=== PATIENT | female | born 1960 | race Caucasian/White ===

== ENCOUNTER → 2020-06-18 | Outpatient (CLI) | payer OTHER ==
[~2020-06-18] VITALS: Ht 160 cm; Wt 77.6 kg
[~2020-06-18] MED LIST: ASA81BEC PO; BUPROPION HCL100 MG PO; CENTRUM SILVER1 EAC5 PO; CITALOPRAM HBR40 MG PO; CLARITIN10 M2 PO; FUROSEMIDE 20 M20 MG PO; GABAPENTIN600 M1 PO; LEVO-T75 MCG PO; MELATONIN10 M3 PO; NORCO 10-325 T1 EACH PO; TRAMADOL 50 MG50 MG PO; VITAMIN B12-FO1 EAC1 PO; ZANAFLEX4 M2 PO
--- NOTE | ~2020-06-18 | HPC ---
[facility] [place] [address] PAIN MANAGEMENT CONSULTATION Name: DANILO ROBERTS Room #: REG [facility]#: [id number] Admission: 06/18/20 Attend Phys: Sam Ortega DO Discharge: Date of : 58 Report #: [id number] THIS REPORT FOR: cc: Tomeka Morin MD, Pamela MD Johnson, James E. DO ~ CC: Sam TOBARP DATE OF SERVICE: 06/18/2020 REFERRING NURSE PRACTITIONER: Olivia Brooks. CHIEF COMPLAINT: Low back pain, bilateral lower extremity pain and paresthesias. HISTORY OF PRESENT ILLNESS: As you know, the patient is a 59-year-old female who has had a longstanding history of low back pain, bilateral lower extremity pain that was present prior to her 3-level fusion of the lumbar spine. Apparently, she did very poorly with her fusion with development of life threatening medical conditions that extended her hospitalization. She was even on dialysis for a period of time. She recovered over a period of time from the postoperative meningitis, encephalitis and renal failure, but has been on narcotic medications since that point. She has sought evaluation through [facility] seeing nurse practitioner, Olivia Brooks who advised the patient that surgical options would be quite extensive and would require prolonged hospitalization. She was originally talked to about an intrathecal pump, but the subject of spinal cord stimulator did rise and the patient was then subsequently referred to our clinic to discuss this option for treatment as she has had significant history with previous fusions and the complication rate with the surgery that is proposed is very high. They determine a more conservative approach would be most recommended. The patient indicates today her pain is continuous. She describes the pain as burning, shooting, cramping and aching. She places current pain score is 7/10, daily average at 7/10, worst pain has been is 9/10. The patient states her pain is exacerbated with cold weather and rain, improves with nothing to date including rapidly escalated opioid medications. She was referred to our office to discuss the option of spinal cord stimulator trial implantation to help with chronic axial back pain and bilateral lower extremity pain. PAST MEDICAL HISTORY: 1. Hypertension. 2. History of kidney disease, status post acute renal failure with dialysis that has somewhat resolved. [address] [address] PAIN MANAGEMENT CONSULTATION Name: DANILO ROBERTS Room #: REG [facility].#: [id number] Admission: 06/18/20 Attend Phys: Sam Ortega DO Discharge: Date of : 58 Report #: [id number] 3. Hypothyroidism. 4. Chronic stomach problems. 5. Degenerative joint disease. 6. Osteoarthritis. 7. Peptic ulcer disease. PAST SURGICAL HISTORY: 1. sections x 2. 2. Excision of an ectopic . 3. Cholecystectomy. 4. Lumbar fusion x 2, 3 levels. SOCIAL HISTORY: The patient continues to smoke 1 pack of tobacco per day, has done so for 35 years and has not discontinued to date. She denies IV or illicit drug use. Admits to 2-3 alcohol beverages per year. She is on disability, has been so for about 7 years. She is receiving disability income. She is not in litigation in regards to her pain. She is unaccompanied at today's visit. REVIEW OF SYSTEMS: Positive for weight gain, decrease in appetite, frequent or recurrent headaches, wearing corrective eyewear, hearing loss with tinnitus, chronic sinus problems with rhinitis, heart murmur, loss of appetite, nocturia, kidney stones, varicose veins, night sweats, bilateral lower extremity numbness and tingling, tremors, memory loss with confusion, nervousness, depression, insomnia, thyroid disease, diabetes mellitus type 2, excessive thirst, urination, heat and cold intolerance. All other review of systems negative per 12-point review of systems other than those listed in history of present illness. Pain impact score 50/70, severe interference of daily activities secondary to pain. ALLERGIES: TRAMADOL. CURRENT MEDICATIONS: Loratadine 10 mg once a day, bupropion SR 100 mg once a day, tizanidine 4 mg 3 times a day, tramadol 50 mg every 6 hours p.r.n., aspirin 81 mg per day, hydrocodone 10/325 one tab every 4 hours p.r.n. pain, levothyroxine 75 mcg per day, citalopram 40 mg once a day, cyanocobalamin 1 tab per day, multivitamin 1 tab per day, melatonin 10 mg per day, gabapentin 300 mg 3 times a day, furosemide 20 mg 2 tabs per day. IMAGING: CT lumbar spine obtained 04/28/2020 shows moderate central canal stenosis at L2-L3 due to combination of anterolisthesis, marked disk space loss and bilateral facet hypertrophy. Posterior decompression and hardware noted from L3 through S1. PQRS: The patient has known arthritic changes of the lumbar spine, bilateral [facility] [address] [place] [address] PAIN MANAGEMENT CONSULTATION Name: DANILO ROBERTS Room #: [facility]#: [id number] Admission: 06/18/20 Attend Phys: aSm Ortega DO Discharge: Date of : 58 Report #: [id number] hips and mild to the knees. No rheumatoid arthritis. She is placing pain intensity anywhere from 7-9/10. She is not a fall risk, typically, but has had a fall in last 3 months. Apparently, she tripped over an object at home. This has been rectified by moving those objects out of her way. She is treated for hypertension, but not treated with any blood thinners. She is on chronic opioids and according to our assessment tool a low assessment for opioid abuse. Pain impact 50/70, severe interference of daily activities secondary to pain. PHYSICAL EXAMINATION: VITAL SIGNS: Blood pressure 152/78, pulse 60, respiratory rate 14 and unlabored. The patient is 100% on room air. Height 5 feet 3 inches tall, weight 171 pounds, BMI calculated 30.3. GENERAL: Well-developed, well-nourished, well-hydrated 59-year-old female appearing stated age. Her pain today is rated anywhere from 7-9/10. HEENT: Normocephalic, atraumatic. Pupils equal, round and reactive. NEUROLOGIC: Speech is fluent. The patient deemed a fair historian. LUNGS: Clear, no wheeze, rhonchi or rales. CARDIOVASCULAR: Regular. No appreciable gallop, no rub. There is noted murmur. ABDOMEN: Soft, obese, normal active bowel sounds. EXTREMITIES: Show no clubbing, no cyanosis, and no edema. MUSCULOSKELETAL: Lower extremity strength appears symmetrical 5/5, intact to light touch from L1 through S2 dermatomes. There does appear to be reduced tactile sensation in the plantar surface of the foot bilaterally. This does not appear to be dermatomal in distribution. Seated straight leg raising negative. Supine straight leg raising is equivocal on the right, negative left. Gait is slightly antalgic. She can tandem walk without assistance. Well-healed surgical scars over the lumbar spine. Muscle bulk and tone appears symmetrical in lower extremities. Ankle clonus negative. Babinski is negative. ASSESSMENT: 1. Symptomatic lumbar radiculopathy. 2. Progressively worsening central canal stenosis of the lumbar spine. 3. Failed lumbar spine surgery. 4. Chronic intractable pain. PLAN: 1. The patient has been referred to our service by her neurosurgery team, specifically nurse practitioner, Olivia Brooks to be evaluated for a spinal cord stimulator trial. The patient does have pathology significant enough that a spinal cord stimulator would be of great benefit. She has symptoms residual from her multilevel fusion, but also is experiencing progressively worsening spinal stenosis at the level above her fusion. At this point, she is not deemed a candidate for surgery given the extensive nature of the surgery proposed and her underlying health condition. They would recommend a more conservative treatment. The patient was subsequently referred to our clinic to discuss the [address] [address] PAIN MANAGEMENT CONSULTATION Name: DANILO ROBERTS Anna Room #: REG [facility] Cathryn#: [id number] Admission: 06/18/20 Attend Phys: Sam Ortega DO Discharge: Date of : 58 Report #: [id number] possibility of undergoing a spinal cord stimulator trial. I do feel she is an excellent candidate for the device as its indication is for failed lumbar spine surgery. We will begin the process immediately of obtaining authorization for the patient to undergo the procedure. The patient was advised of the certain criteria that are necessary to be met before the patient could begin the authorization process. The patient will have to be seen by Psychiatry evaluated and determined to have no notable psychopathology that would preclude the patient from undergoing a spinal cord stimulator implant. The patient was given the names of psychiatrists in the area that provide this testing for us. She will make an appointment with them as quickly as possible. Once she has completed the psychiatric evaluation, she is to call our clinic so that we can be looking for results. Assuming she has no notable psychopathology, we would then begin the process of authorization to undergo trial implantation. The patient has been given the number here to our clinic to advise us once she scheduled the appointment and once she has completed the appointment, so that we can seek out the findings and provide those to her insurer to begin the authorization process. 2. No medication changes made at today's visit. The patient will continue current medical therapy as prior prescribed. 3. The patient was given the information about the Medtronic spinal cord stimulating device. We feel this would be the most appropriate device in this patient's case. She has been given written information and advised to seek out digital information on the internet. She will review this information at her earliest convenience. I have recommended that she do so prior to a psychiatric evaluation as some of the questions will address the device itself. 4. The patient was given some of the taping systems that we use here at our clinic. She reports an allergic reaction to TAPE. We have provided her with the MediPort tape, which is the tape we use specifically for spinal cord stimulator trials. I have advised the patient to utilize this over the next couple of days to determine if she can handle the tape on the skin as it will be there for an entire week with a percutaneous trial through our services. We will do our best to use the minimal amount of tape possible, but we do need to make sure that the device is secured, so it does not displace during the trial period. The patient was given a couple of different tapes here at the clinic today. She will trial those and determine if she can tolerate them with direct skin contact. She will contact our clinic if she has any difficulties. 5. We plan to see the patient back in followup visit once we have achieved authorization to undergo spinal cord stimulator trial implantation per the request of Neurosurgery. I do feel she is an excellent candidate for the device and I think she will do well. We will keep the team advised of her progress for the prior authorization and the timing for the trial to be completed. 6. We wish to thank nurse practitioner, Olivia Brooks for the opportunity to see the patient in consultation. We will keep you apprised of response to treatment as we address lumbar radicular symptoms with a spinal cord stimulator [address] [address] PAIN MANAGEMENT CONSULTATION Name: DANILO ROBERTS Room #: REG [facility].#: [id number] Admission: 06/18/20 Attend Phys: Sam Ortega DO Discharge: Date of : 58 Report #: [id number] trial. Again, we wish to thank you for the opportunity to see the patient in consultation. By: [id number] Sam Ortega DO /nt
[2020-06-18 13:48] VITALS: BP 152/78
--- NOTE | 2020-06-18 14:21 | NUR ---
Pain Clinic Assessment: 1. History of Osteoarthritis: BACK History of Rheumatoid Arthritis: 2. Height: 5 ft. 3 in. 160.0 cm. Weight: 171.0 lb. oz. 77.565 kg. Patient's BMI: 30.3 3. Vital Signs: BP: 152/78 Pulse: 60 Resp: 14 Temp: 02 Sat: 100 ECG Mon: 4. Pain Intensity: 7 TO 9 5. Fall Risk: Dizziness: N Needs help standing or walking: N Fallen in the last 3 months: Y Fall risk comments: 6. Patient on Blood Thinner: None 7. History of Hypertension: Y 8. Opioid Therapy greater than 6 weeks: Y Opiate Contract Signed: 07/25/17 9. Risk Assessment Tool Provided: low-3 10. Functional Assessment Tool: 50/70 11. Recreational Drug Use: Never Drug Type: Tobacco Use: Current Every Day Smoker Tobacco Type: Cigarettes Amount or Packs/day: 1 How Many Years: 35 Alcohol Use: Yes Frequency: Special Occasions Quant: 1
== END ==
LOC: PAIN 06:49
PROVIDERS: ATTEND Anesthesiology Pain Medicine
DX: M54.16 Radiculopathy, lumbar region (principal); I10 Essential (primary) hypertension; E03.9 Hypothyroidism, unspecified; M79.661 Pain in right lower leg; M79.662 Pain in left lower leg; R20.2 Paresthesia of skin

== ENCOUNTER → 2020-09-16 | Outpatient (CLI) | payer OTHER ==
[~2020-09-16] VITALS: Ht 160 cm; Wt 80.8 kg
[2020-09-16 07:21] VITALS: BP 147/90
--- NOTE | 2020-09-16 07:27 | NUR ---
Pain Clinic Assessment: 1. History of Osteoarthritis: BACK History of Rheumatoid Arthritis: 2. Height: 5 ft. 3 in. 160.0 cm. Weight: 178.2 lb. oz. 80.831 kg. Patient's BMI: 31.6 3. Vital Signs: BP: 147/90 Pulse: 101 Resp: 16 Temp: 02 Sat: 97 ECG Mon: 4. Pain Intensity: 8 5. Fall Risk: Dizziness: N Needs help standing or walking: N Fallen in the last 3 months: Y Fall risk comments: 6. Patient on Blood Thinner: None 7. History of Hypertension: Y 8. Opioid Therapy greater than 6 weeks: Y Opiate Contract Signed: 07/25/17 9. Risk Assessment Tool Provided: low-3 10. Functional Assessment Tool: 50/70 11. Recreational Drug Use: Never Drug Type: Tobacco Use: Current Every Day Smoker Tobacco Type: Cigarettes Amount or Packs/day: 1 PACK How Many Years: Alcohol Use: Yes Frequency: Special Occasions Quant: 1
--- NOTE | 2020-09-16 11:13 | HPC ---
[facility] [place] [address] PAIN MANAGEMENT CONSULTATION Name: DANILO ROBERTS Room #: REG [facility].#: [id number] Admission: 09/16/20 Attend Phys: Sam Ortega DO Discharge: Date of : 58 Report #: [id number] THIS REPORT FOR: cc: Tomeka Morin MD, Pamela MD Johnson, James E. DO ~ DATE OF SERVICE: 09/16/2020 CHIEF COMPLAINT: Low back pain, bilateral lower extremity pain and paresthesias. HISTORY OF PRESENT ILLNESS: As you know, the patient is a 59-year-old female with longstanding history of low back pain, bilateral lower extremity pain that has been present since her 3-level fusion of the lumbar spine. She did poorly with the fusion with development of life-threatening medical conditions and extended hospitalization. She was even on dialysis for a period of time due to some of the complications of that surgery. She sought evaluation through neurosurgery, who advised the patient to trial more conservative treatment approach. She was established an appointment with us to discuss spinal cord stimulator technology. She has successfully completed all prerequisites to be authorized to undergo spinal cord stimulator trial implantation. She returns today in followup visit to undergo the procedure. She is placing her current pain score at about 8/10. She states the pain is constant, burning, aching and shooting in sensation, begins in low back, radiates down both legs to the feet. She returns today in followup visit with preauthorization to undergo spinal cord stimulator trial implantation with the Medtronic device. ALLERGIES: TRAMADOL. CURRENT MEDICATIONS: Loratadine 10 mg once a day, bupropion SR 100 mg once a day, tizanidine 4 mg 3 times a day, tramadol 50 mg every 6 hours, hydrocodone 10/325 one tab every 4 hours p.r.n. for pain, levothyroxine 75 mcg per day, citalopram 40 mg per day, cyanocobalamin 1 tab per day, multivitamin 1 tab per day, melatonin 10 mg once a day, gabapentin 300 mg 3 times a day, furosemide 20 mg 2 tabs p.o. daily. SOCIAL HISTORY: The patient continues to smoke 1 pack of tobacco per day, has done so for 35 years. Denies IV or illicit drug use. Admits to 3 alcoholic beverages per year. She is on disability and has been so for 7 years, unaccompanied today. IMAGING: No new imaging available. PQRS: The patient has known arthritic changes of the lumbar spine, bilateral hips, mild bilateral osteoarthritic knees. No rheumatoid arthritis. She is placing pain intensity today at 8/10. She is not a fall risk, but did have a [facility] [address] [place] [address] PAIN MANAGEMENT CONSULTATION Name: DANILO ROBERTS Anna Room #: REG [facility] Cathryn#: [id number] Admission: 09/16/20 Attend Phys: Sam Ortega DO Discharge: Date of : 58 Report #: [id number] fall in the last 3 months. This was stumbling over something at home. This has been rectified. She does not use any type of ambulatory devices. She is not on blood thinners, but is treated for hypertension. She is on chronic opioids, has a low opiate addiction potential based on assessment tool utilized here at the clinic. Pain impact is 50/70, severe interference of daily activities secondary to pain. PHYSICAL EXAMINATION: VITAL SIGNS: Blood pressure 147/90, pulse 101, respiratory rate 16 and unlabored. The patient is 97% on room air. Height 5 feet 3 inches tall, weight 178.2 pounds, BMI calculated 31.6. GENERAL: Well-developed, well-nourished, well-hydrated 59-year-old female, appears older than stated age, placing current pain score at 8/10, smell strongly of tobacco smoke. EXTREMITIES: Show no clubbing, no cyanosis, no edema. MUSCULOSKELETAL: Lower extremity strength equal and symmetrical again today 5/5. Muscle bulk and tone is equal and symmetrical. There is reduced tactile sensation on the plantar surface of the feet bilaterally. This does not appear to be in dermatomal distribution. Seated straight leg raising negative. Supine straight leg raising is equivocal on the right, negative left. Gait is mildly antalgic. ASSESSMENT: 1. Symptomatic lumbar radiculopathy. 2. 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 3. Failed lumbar spine surgery. 4. Chronic intractable pain. PLAN: 1. The patient returns today in followup visit to undergo spinal cord stimulator trial implantation with a Medtronic device. The patient was referred to our clinic by her neurosurgery team to undergo this procedure, assuming it is effective at providing excellent benefit. The patient will then move on to permanent implant. She has been established today's appointment to undergo spinal cord stimulator trial implantation under fluoroscopic guidance. The patient has been advised risks and benefits of the procedure, states understood and wished to proceed. 2. No medication changes made at today's visit. The patient will continue current medical therapy as prior prescribed. 3. We plan to see the patient back in followup visit next week for explantation of device and to discuss the efficacy in regards to the patient's typical low back and bilateral lower extremity pain. The patient was given phone numbers to contact the Medtr[employer] device rental sales representative if she has difficulty with maintaining analgesic benefit. If there are any concerning complications, increased headache, back pain, weakness of any kind, fever, chills or night sweats, she is to contact the on-call pain physician. [facility] [address] [place] [address] PAIN MANAGEMENT CONSULTATION Name: DANILO ROBERTS Room #: [facility].#: [id number] Admission: 09/16/20 Attend Phys: Sam Ortega DO Discharge: Date of : 58 Report #: [id number] 4. We will see the patient back in followup visit in 1 week for explantation of device. PROCEDURE NOTE DESCRIPTION OF PROCEDURE: Two-lead spinal cord stimulator trial implantation with fluoroscopy. After informed consent was obtained, a 22-gauge IV Hep-Lock was placed in the patient's right upper extremity. She was given IV prophylactic antibiotic infused over 30 minutes prior to procedure. The patient was then taken to the fluoroscopy suite, placed in prone position with 3 pillows under the abdomen to decrease lumbar lordosis and to ____ the thoracic kyphosis. Cardiopulmonary monitoring was established and the patient's vital signs were monitored throughout the procedure. The patient's thoracolumbar spine was prepped and draped with chlorhexidine and draped in sterile fashion. She was not provided any IV sedation. AP fluoroscopic view was obtained to identify and milton the midline position of the T10 through L2 spinous processes. Skin was anesthetized with 1% lidocaine 10 mL on the right and 11 mL on the left prior to the introduction of the 14-gauge 4-inch Tuohy needles. Skin entry site was at the proximal level of the L1 vertebral body. Needle was advanced using a paramedian approach to the right of midline, approximately 45 degree angle. Loss of resistance air was utilized to verify placement within the epidural space. Epidural space was entered at the T12-L1 interspace. Lateral fluoroscopic view was obtained to confirm the position of the tip of the Tuohy needle within the epidural space. Aspiration noted to be negative for CSF or heme. The patient did not complain of any pain or paresthesias during needle placement. Spinal cord stimulating lead was then advanced through the Tuohy needle under direct visualization and slightly to the right of midline. The tip of the stimulating lead was aligned with the inferior endplate of T8 vertebral body and located 1 mm off midline. At this point, our attention was then directed to the left side. A 14-gauge 4-inch needle was advanced under fluoroscopic guidance with entry site at approximately L1 vertebral body on the left. Needle was advanced using a paramedian approach to the left of midline with approximately 45 degree angle. Loss of resistance to air was utilized to verify placement within the epidural space. Epidural space entered at the T12-L1 interspace. Lateral fluoroscopic view was obtained to confirm position of the tip of the Tuohy needle within the epidural space. Aspiration negative for heme or cerebrospinal fluid. The patient did not complain of pain or paresthesias during needle placement. The stimulating lead was then advanced through the Tuohy needle under direct visualization to the left of midline. The tip of the stimulating lead was aligned with the superior endplate of T8 vertebral body located within the midline. Final position of the 0 electrode was noted for both leads. [employer] [address] [address] PAIN MANAGEMENT CONSULTATION Name: ALEJANDRADANILO S Room #: REG [facility]#: [id number] Admission: 09/16/20 Attend Phys: Sam Ortega DO Discharge: Date of : 58 Report #: [id number] were then removed from the leads followed by the Tuohy needle. We confirmed the position of the leads had not changed during the explantation of the stylets or the Tuohy needles. The leads were then adhered to the patient's back with Mastisol, Steri-Strips, and OpSite bandaging. The patient tolerated procedure well and was carefully escorted to recovery room in stable condition. No apparent complications. We spent over 30 minutes of time assisting in programming the spinal cord stimulating device and discussing with the patient the limitations during the trial as well as not getting the area wet and maintaining contact with the on-call pain physician and the [employer] device rental sales representative. The patient was again given phone numbers to the [employer] device rental sales representative for discussions of pain programming for her typical pain. She was also given the on-call pain physician number if she experiences any fever, chills, night sweats, concerning findings drainage or any concerning symptoms that may be related to infection. After meeting all discharge criteria, the patient discharged home with plans to return next week for explantation of the device. <ELECTRONICALLY SIGNED> By: Sam Ortega DO 09/16/20 [id number] Sam Ortega DO /nt
== END | disposition home or self-care (01) ==
LOC: PAIN 09-09 08:48
PROVIDERS: ATTEND Anesthesiology Pain Medicine
DX: M54.16 Radiculopathy, lumbar region (principal); M48.061 Spinal stenosis, lumbar region without neurogenic claudication; M96.1 Postlaminectomy syndrome, not elsewhere classified; G89.29 Other chronic pain; I10 Essential (primary) hypertension; M19.90 Unspecified osteoarthritis, unspecified site; Z98.890 Other specified postprocedural states; Z79.899 Other long term (current) drug therapy; Z88.8 Allergy status to other drugs, medicaments and biological substances; Z79.891 Long term (current) use of opiate analgesic

== ENCOUNTER → 2020-09-23 | Outpatient (CLI) | payer OTHER ==
[~2020-09-23] VITALS: Ht 160 cm; Wt 86.9 kg
[2020-09-23 09:31] VITALS: BP 158/97
--- NOTE | 2020-09-23 09:35 | NUR ---
Pain Clinic Assessment: 1. History of Osteoarthritis: BACK History of Rheumatoid Arthritis: 2. Height: 5 ft. 3 in. 160.0 cm. Weight: 191.6 lb. oz. 86.909 kg. Patient's BMI: 33.9 3. Vital Signs: BP: 158/97 Pulse: 80 Resp: 18 Temp: 02 Sat: 98 ECG Mon: 4. Pain Intensity: 2-3 5. Fall Risk: Dizziness: N Needs help standing or walking: N Fallen in the last 3 months: N Fall risk comments: 6. Patient on Blood Thinner: None 7. History of Hypertension: Y 8. Opioid Therapy greater than 6 weeks: Y Opiate Contract Signed: 07/25/17 9. Risk Assessment Tool Provided: low-3 10. Functional Assessment Tool: 50/70 11. Recreational Drug Use: Never Drug Type: Tobacco Use: Current Every Day Smoker Tobacco Type: Amount or Packs/day: How Many Years: Alcohol Use: Yes Frequency: Quant:
--- NOTE | 2020-09-23 12:05 | HPC ---
[facility] [address] [place] [address] PAIN MANAGEMENT CONSULTATION Name: DANILO ROBERTS Room #: [facility].#: [id number] Admission: 09/23/20 Attend Phys: Sam Ortega DO Discharge: Date of : 58 Report #: [id number] THIS REPORT FOR: cc: Tomeka Morin MD, Pamela MD Johnson, James E. DO ~ DATE OF SERVICE: 09/23/2020 CHIEF COMPLAINT: Low back pain, bilateral lower extremity pain with paresthesias. HISTORY OF PRESENT ILLNESS: As you know, the patient is a 59-year-old female with longstanding history of axial back pain and bilateral lower extremity pain with paresthesias that began after her 3-level fusion of the lumbar spine. She did poorly with a fusion developing life-threatening medical conditions and extended hospitalization. She was even on dialysis for this complications from the surgery. She has resolved from these issues and sought evaluation through Neurosurgery for continued low back symptoms and bilateral lower extremity pain. She was determined to be a nonsurgical candidate and referred to our clinic to trial a spinal cord stimulator. The patient underwent the implantation of spinal cord stimulator on 09/16/2020 with excellent benefit. She is reporting 80% improvement in overall pain with complete resolution of her bilateral lower extremity symptoms. She is extremely pleased with response to the device returning in followup visit for explantation and to begin the process of moving forward with permanent implant with Dr. Del Toro. ALLERGIES: TRAMADOL. CURRENT MEDICATIONS: Loratadine, bupropion SR, tizanidine, tramadol, hydrocodone, levothyroxine, citalopram, cyanocobalamin, multivitamin, melatonin, gabapentin, furosemide. SOCIAL HISTORY: The patient continues to smoke 1 pack of tobacco per day, has done so for 35 years. Denies IV or illicit drug use. Admits to 3 alcoholic beverages per year. She is on disability, has been so for the past 7 years. She is unaccompanied today. IMAGING: No new imaging available. PQRS: The patient has known arthritic changes of the lumbar spine, bilateral hips and mildly in the bilateral knees. No rheumatoid arthritis. She is placing pain intensity today, no greater than 2/10. She is not a fall risk, has not had a fall in last 3 months. She is not on blood thinners, but is treated for hypertension. She is on chronic opioids, has a low opiate addiction potential based on assessment tool. Pain impact is 50/70 with the device off, 10/70 with the device on. [address] [address] PAIN MANAGEMENT CONSULTATION Name: DANILO ROBERTS Room #: [facility]#: [id number] Admission: 09/23/20 Attend Phys: Sam Ortega DO Discharge: Date of : 58 Report #: [id number] PHYSICAL EXAMINATION: VITAL SIGNS: Blood pressure 150/97, pulse 80, respiratory rate 18 and unlabored. The patient is 98% on room air. Height 5 feet 3 inches tall, weight 191.6 pounds, BMI calculated 33.9. GENERAL: Well-developed, well-nourished, well-hydrated 59-year-old female appearing stated age. She is in no acute distress, awake, alert and oriented x 3, pain is rated at 2/10. HEENT: Normocephalic and atraumatic. She smells strongly of tobacco smoke. She is wearing a mask in compliance with COVID-19 regulations. EXTREMITIES: Show no clubbing, no cyanosis, no edema. MUSCULOSKELETAL: Lower extremity strength is symmetrical. Muscle bulk and tone is equal and symmetrical in comparing lower extremities. There is tape in place covering the spinal cord stimulator. The tape is clean, dry and intact. ASSESSMENT: 1. Symptomatic lumbar radiculopathy. 2. 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 3. Failed lumbar spine surgery. 4. Chronic intractable pain. PLAN: 1. The patient returns today in followup visit for explantation of spinal cord stimulating device. She did very well with this device reporting up to 80% improvement in overall pain. She is hoping to move forward with permanent implant as quickly as possible. The patient did very well with the Medtronic device and is going to be returning to see Neurosurgery to schedule the permanent implant. We are pleased to see she has done well, returning in followup visit today for explantation of the device. 2. The patient was provided no changes in medication management. She will continue current therapy as prior prescribed. 3. The patient will be following up with [facility]surgery of [facility] to begin the process of planning to undergo permanent spinal cord stimulator implantation with a Medtronic device. We are pleased that she has done well. We will be returning her care to the referring team for permanent implant of a spinal cord stimulator to address failed lumbar spine pain. PROCEDURE: Explantation of spinal cord stimulating leads. The patient was placed in a seated position. We removed all OpSite bandaging and Steri-Strips. There were 2 spinal cord stimulating leads in place. There is no erythema or drainage at the insertion sites. The leads were explanted without difficulty. Both leads had 8 electrodes and tips intact. The patient tolerated this procedure without any pain or paresthesias. There was sterile [address] [address] PAIN MANAGEMENT CONSULTATION Name: DANILO ROBERTS Room #: [facility].#: [id number] Admission: 09/23/20 Attend Phys: Sam Ortega DO Discharge: Date of : 58 Report #: [id number] bandage was placed back over the injection sites. She was advised not to get the area wet for the next 24 hours. <ELECTRONICALLY SIGNED> By: Sam Ortega DO 09/23/20 1205 1023 1048 Sam Ortega DO /nt
== END ==
LOC: PAIN 06:52
PROVIDERS: ATTEND Anesthesiology Pain Medicine
DX: M54.16 Radiculopathy, lumbar region (principal); M96.1 Postlaminectomy syndrome, not elsewhere classified; G89.29 Other chronic pain; M48.061 Spinal stenosis, lumbar region without neurogenic claudication; M79.604 Pain in right leg; M79.605 Pain in left leg; R20.2 Paresthesia of skin; Z88.8 Allergy status to other drugs, medicaments and biological substances; Z79.899 Other long term (current) drug therapy